=== PATIENT | male | born 1935 | race Caucasian/White ===

== ENCOUNTER 2020-10-08 16:02 | Emergency (ER) | payer MEDICARE, OTHER ==
[~2020-10-08] VITALS: Ht 182.9 cm; Wt 75.0 kg
[~2020-10-08 16:02] MED LIST: FLONASEALLERGY NS; MOTRIN 200200 MG/TAB PO; PRILOSEC 20MG20 MG PO; VIAGRA100 M1 PO
[2020-10-08 16:57] LABS: BASO % 0.5 % (0.0-2.0); EOS # 0.1 (0.0-0.7); EOS % 1.8 % (0-4.0); GRAN # 4.1 (1.4-6.5); GRAN % 72.4 % (42.2-75.2); HEMATOCRIT 39.7 % (42.0-52.0); LYMPH # 0.9 (1.2-3.4); LYMPH % 16.6 % (20.0-51.0); MEAN CELL VOLUME 89 fl (80.0-100.0); MEAN CORPUSCULAR HEMOGLOBIN 31 pg (27.0-31.0); MEAN CORPUSCULAR HGB CONC 35 g/dl (33.0-37.0); MEAN PLATELET VOLUME 9.8 fl (7.4-10.4); MONO # 0.5 (0.1-0.6); MONO % 8.5 % (1.7-9.3); PLATELET COUNT 186 K/mm3 (130-400); RED BLOOD COUNT 4.46 M/mm3 (4.20-5.60); REDCELL DISTRIBUTION WIDTH-CV 11.6 % (11.5-14.5)
[2020-10-08 17:14] LABS: ALANINE AMINOTRANSFERASE 16 U/L (4-49); ALBUMIN 3.7 gm/dL (3.5-5.0); ALKALINE PHOSPHATASE 77 U/L (50-136); ANION GAP 7 mmol/L (7-16); AST,SGOT 28 U/L (15-37); BILIRUBIN,TOTAL 0.4 mg/dL (0.0-1.0); BLOOD UREA NITROGEN 21 mg/dL (9-20); CALCIUM 8.7 mg/dL (8.4-10.2); CARBON DIOXIDE 24 mmol/L (22-30); CHLORIDE 101 mmol/L (98-107); GLUCOSE 122 mg/dL (74-106); LIPASE 102 U/L (23-300); POTASSIUM 4.2 mmol/L (3.4-5.0); SODIUM 132 mmol/L (137-145); TOTAL PROTEIN 6.8 gm/dL (6.4-8.2)
[2020-10-08 17:25] LABS: TROPONIN-I < 0.012 ng/mL (0.000-0.035)
[2020-10-08 17:52] LABS: PROTHROMBIN TIME 10.9 SECONDS (9.7-12.8)
[2020-10-08 17:55] LABS: PARTIAL THROMBOPLASTIN TIME 31.1 SECONDS (26.0-37.0)
[2020-10-08 21:01] LABS: COLLECTION METHOD CLEAN CATCH
[2020-10-08 21:13] LABS: MUCOUS Present /lpf; PH 5 (5-8); SQUAMOUS EPITHELIAL None Seen /hpf; URINE APPEARANCE Clear; URINE BACTERIA None Seen /hpf; URINE BILIRUBIN Negative (NEGATIVE); URINE BLOOD Negative (NEGATIVE); URINE COLOR Yellow; URINE GLUCOSE Negative (NEGATIVE); URINE KETONE Negative (NEGATIVE); URINE LEUKOCYTE ESTERASE Negative (NEGATIVE); URINE NITRATE Negative (NEGATIVE); URINE PROTEIN(semi-quant) Negative (NEGATIVE)
[2020-10-08 22:00] VITALS: BP 158/117; PULSE 67; TEMP 97.6
== END 2020-10-08 22:00 | disposition short-term general hospital (02) ==
LOC: COL.ER 16:02
PROVIDERS: Emergency Medicine
DX: S06.5X0A Traumatic subdural hemorrhage without loss of consciousness, initial encounter (principal); W18.30XA Fall on same level, unspecified, initial encounter; Y92.009 Unspecified place in unspecified non-institutional (private) residence as the place of occurrence of the external cause
CPT/HCPCS: J1953; J7050; Q9967

== ENCOUNTER 2020-12-08 10:51 | Inpatient (IN) | payer MEDICARE, OTHER ==
[~2020-12-08] VITALS: Ht 185.4 cm; Wt 75.0 kg
[2020-12-08 11:53] LABS: BASO # 0.1 (0.0-0.2); BASO % 0.8 % (0.0-2.0); EOS # 0.1 (0.0-0.7); GRAN # 4.3 (1.4-6.5); HEMATOCRIT 44.4 % (42.0-52.0); HEMOGLOBIN 15.3 g/dl (13.5-18.0); LYMPH # 1.2 (1.2-3.4); LYMPH % 19.3 % (20.0-51.0); MEAN CELL VOLUME 92 fl (80.0-100.0); MEAN CORPUSCULAR HEMOGLOBIN 32 pg (27.0-31.0); MEAN CORPUSCULAR HGB CONC 35 g/dl (33.0-37.0); MEAN PLATELET VOLUME 9.6 fl (7.4-10.4); MONO # 0.3 (0.1-0.6); MONO % 5.6 % (1.7-9.3); PLATELET COUNT 195 K/mm3 (130-400); RED BLOOD COUNT 4.82 M/mm3 (4.20-5.60); REDCELL DISTRIBUTION WIDTH-CV 12.7 % (11.5-14.5)
[2020-12-08 11:57] LABS: ALANINE AMINOTRANSFERASE 17 U/L (4-49); ALBUMIN 4.1 gm/dL (3.5-5.0); ALKALINE PHOSPHATASE 81 U/L (50-136); ANION GAP 6 mmol/L (7-16); AST,SGOT 28 U/L (15-37); BILIRUBIN,TOTAL 1.1 mg/dL (0.0-1.0); BLOOD UREA NITROGEN 16 mg/dL (9-20); CALCIUM 9.1 mg/dL (8.4-10.2); CARBON DIOXIDE 26 mmol/L (22-30); CHLORIDE 106 mmol/L (98-107); CREATININE, serum 1.27 (0.66-1.25); GLUCOSE 93 mg/dL (74-106); POTASSIUM 4.3 mmol/L (3.4-5.0); SODIUM 138 mmol/L (137-145); TOTAL PROTEIN 7.6 gm/dL (6.4-8.2)
[2020-12-08 12:14] LABS: TROPONIN-I < 0.012 ng/mL (0.000-0.035)
[2020-12-08 18:06] VITALS: BP 141/102; PULSE 120; TEMP 98.2
--- NOTE | 2020-12-08 19:18 | NUR ---
Assessment completed, alert/oriented, hheart irregular/A.fib on tele HR 120's, on Cardizem gtt @ 5ml/hr, he is also hypertensive, denies any chest pain or discomfort, denies palpitations or dizziness, lungs CTA/ no resp.difficulty, meds/allergies/pharmacy reviewed with patient, present at bedside, denies other needs at this time
[2020-12-08 19:48] VITALS: BP 137/97; PULSE 124; TEMP 97.7
[2020-12-09 00:38] VITALS: BP 105/59; PULSE 61; TEMP 98.6
[2020-12-09 05:05] VITALS: BP 120/73; PULSE 61; TEMP 97.8
[2020-12-09 07:22] VITALS: BP 129/80; PULSE 61; TEMP 98
[2020-12-09 09:42] LABS: BASO # 0.1 (0.0-0.2); BASO % 0.9 % (0.0-2.0); EOS # 0.2 (0.0-0.7); EOS % 3.4 % (0-4.0); GRAN # 3.9 (1.4-6.5); GRAN % 70.4 % (42.2-75.2); HEMATOCRIT 42.7 % (42.0-52.0); HEMOGLOBIN 14.8 g/dl (13.5-18.0); LYMPH % 18.5 % (20.0-51.0); MEAN CELL VOLUME 92 fl (80.0-100.0); MEAN CORPUSCULAR HEMOGLOBIN 32 pg (27.0-31.0); MEAN CORPUSCULAR HGB CONC 35 g/dl (33.0-37.0); MEAN PLATELET VOLUME 9.9 fl (7.4-10.4); MONO # 0.4 (0.1-0.6); MONO % 6.6 % (1.7-9.3); PLATELET COUNT 198 K/mm3 (130-400); RED BLOOD COUNT 4.64 M/mm3 (4.20-5.60); REDCELL DISTRIBUTION WIDTH-CV 12.8 % (11.5-14.5)
[2020-12-09 09:52] LABS: CALCIUM 9.2 mg/dL (8.4-10.2); CREATININE, serum 1.33 (0.66-1.25); POTASSIUM 4.1 mmol/L (3.4-5.0)
--- NOTE | 2020-12-09 10:03 | NUR ---
SW met with the patient to discuss discharge plan. The patient lives in [place] with his , Annabel ([id number]#[phone]). He reports independence with ADLs and has a cane. The patient's PCP is Dr. Lynne Childs and he receives his medications from [facility] and a mail order through [facility]. He reports no difficulties obtaining his meds. The patient does not have a DPOA-HC in EMR, but he states that he does have one completed and that the form is at home. He states that his is his DPOA-HC. The patient plans to return home with his upon discharge. No additional needs at this time. *Discharge plan: home with *
--- NOTE | 2020-12-09 10:26 | NUR ---
Walked with patient in the tracy HR remained 60-65. Pt not dizzy or symptomatic while walking. POC discussed with patient. Call light within reach.
--- NOTE | 2020-12-09 10:38 | NUR ---
Initial visit; Initial visit, Patient thanked Pay Station Department Manager for looking in on him and offering God's blessings.
[2020-12-09] MEDS ORDERED: TOPROL XL 50MG50 MG PO (10:47)
[2020-12-09] MEDS ORDERED: ASPIRIN E.C. 8181 MG PO (10:47)
--- NOTE | 2020-12-09 11:40 | NUR ---
Discharge paperwork and instructions reviewed with patient and his . All questions answered at this time. IV to RFA dc'd catheter tip intact. Pt walked out of facility by staff member at this time.
== END 2020-12-09 11:41 | disposition home or self-care (01) | DRG 310 ==
LOC: COL.ER 10:51 → MEDICAL 15:41 → COL.ER 15:41 → MEDICAL 12-09 11:41
PROVIDERS: Emergency Medicine; ADMIT Internal Medicine
DX: I48.92 Unspecified atrial flutter (principal); K21.9 Gastro-esophageal reflux disease without esophagitis; I10 Essential (primary) hypertension; Z85.46 Personal history of malignant neoplasm of prostate; Z90.79 Acquired absence of other genital organ(s)
CPT/HCPCS: 99222-AI; J7050

== ENCOUNTER 2021-07-05 14:54 | Emergency (ER) | payer MEDICARE, OTHER ==
[~2021-07-05] VITALS: Ht 185.4 cm; Wt 79.5 kg
[~2021-07-05 14:54] MED LIST changes: +ASPIRIN E.C. 8181 MG PO; +TOPROL XL 50MG50 MG PO
[2021-07-05 15:06] VITALS: TEMP 97.6
[2021-07-05 17:25] VITALS: BP 165/98; PULSE 98
== END 2021-07-05 17:26 | disposition home or self-care (01) ==
LOC: COL.ER 14:54
DX: S01.21XA Laceration without foreign body of nose, initial encounter (principal); S01.81XA Laceration without foreign body of other part of head, initial encounter; I10 Essential (primary) hypertension; I48.91 Unspecified atrial fibrillation; Z23 Encounter for immunization; Z79.82 Long term (current) use of aspirin; W10.8XXA Fall (on) (from) other stairs and steps, initial encounter

== ENCOUNTER 2022-08-19 21:23 | Emergency (ER) | payer MEDICARE, OTHER ==
[2022-08-19 21:32] VITALS: TEMP 97.7
[2022-08-19 21:48] LABS: BASO # 0.1 K/mm3 (0.0-0.2); BASO % 0.9 % (0.0-2.0); EOS # 0.2 K/mm3 (0.0-0.7); EOS % 2.8 % (0.0-4.0); GRAN # 4.2 K/mm3 (1.4-6.5); GRAN % 60.1 % (42.2-75.2); HEMATOCRIT 41.4 % (42.0-52.0); HEMOGLOBIN 15.4 g/dl (13.5-18.0); LYMPH % 29.1 % (20.0-51.0); MEAN CELL VOLUME 89 fl (80.0-100.0); MEAN CORPUSCULAR HEMOGLOBIN 33 pg (27-31); MEAN CORPUSCULAR HGB CONC 37 g/dl (33.0-37.0); MEAN PLATELET VOLUME 9.7 fl (7.4-10.4); MONO # 0.5 K/mm3 (0.1-0.6); MONO % 6.8 % (1.7-9.3); PLATELET COUNT 175 K/mm3 (130-400); RED BLOOD COUNT 4.68 M/mm3 (4.20-5.60); REDCELL DISTRIBUTION WIDTH-CV 11.9 % (11.5-14.5)
[2022-08-19 22:03] LABS: ALBUMIN 3.8 gm/dL (3.4-4.8); CALCIUM 8.8 mg/dL (8.4-10.2); CREATININE, serum 1.26 mg/dL (0.72-1.25); POTASSIUM 3.9 mmol/L (3.5-4.5); TOTAL PROTEIN 7.3 gm/dL (6.2-8.1)
[2022-08-19 22:09] LABS: TROPONIN-I 0.015 ng/mL (0.00-0.033)
[2022-08-19 22:20] LABS: BILIRUBIN,TOTAL 0.4 mg/dL (0.2-1.2)
[2022-08-20 00:35] VITALS: BP 164/90; PULSE 88
== END 2022-08-20 00:38 | disposition short-term general hospital (02) ==
LOC: COL.ER 21:23
PROVIDERS: Physician Assistant
DX: S01.412A Laceration without foreign body of left cheek and temporomandibular area, initial encounter (principal); S01.312A Laceration without foreign body of left ear, initial encounter; Z79.82 Long term (current) use of aspirin; Z28.310 Unvaccinated for COVID-19; W18.30XA Fall on same level, unspecified, initial encounter; W22.8XXA Striking against or struck by other objects, initial encounter